=== PATIENT | male | born 1985 | race Caucasian/White ===

== ENCOUNTER 2020-03-27 23:29 | Emergency (ER) | payer OTHER, SELFPAY ==
--- NOTE | ~2020-03-27 | XR_ITS ---
EXAMINATION: XR abdomen/kub 1V INDICATION: Left flank pain TECHNIQUE: Supine views of the abdomen were obtained on 2 radiographs. COMPARISON: None FINDINGS: No urinary tract calculi are identified. The bowel gas pattern is normal. There are no dila gwendolyn loops of bowel. A moderate volume of colonic stool is noted. IMPRESSION: 1. No urolithiasis identified. Reviewed, dictated and finalized at location A.
[2020-03-27 23:31] VITALS: BP 130/79; PULSE 71; RESP 19; TEMP 36.4; O2SAT 98
[2020-03-27 23:55] LABS: Basophils Percent Auto 0.3 % (0.2-1.2); Eosinophils Absolute Auto 0.5 K/mm3 (0-0.3); Eosinophils Percent Auto 6.2 % (0-4.4); Hematocrit 43.2 % (42.0-52.0); Hemoglobin 14.9 g/dL (14.0-18.0); Immature Granulocyte Absolute 0.03 K/mm3 (0.00-0.031); Immature Granulocyte Percent A 0.3 % (0-0.5); Lymphocytes Absolute Auto 2.65 K/mm3 (0.9-3.2); Lymphocytes Percent Auto 30.4 % (18.3-44.2); Mean Corpuscular HGB Conc 34.5 g/dl (32-36); Mean Corpuscular Volume 95.6 fl (80-100); Monocytes Absolute Auto 0.8 K/mm3 (0.1-0.6); Monocytes Percent Auto 8.6 % (2.6-8.5); Neutrophils Absolute Auto 4.7 K/mm3 (1.3-6.7); Neutrophils Percent Auto 54.2 % (45.5-73.1); Platelet Count Result 243 k/mm3 (150-375); Red Blood Count 4.52 M/mm3 (4.6-6.20); Red Cell Distribution Width 12.9 % (11.5-14.5); White Blood Count 8.7 K/mm3 (4.5-10.0)
--- NOTE | 2020-03-27 23:57 | ED.ABDPAIN ---
HPI - Abdominal Pain General Chief Complaint: Abdominal Pain Stated Complaint: pain in l side Time Seen by Provider: 03/27/20 23:37 History of Present Illness HPI narrative: LUQ pain for the past week. Continuous. Currently mild. Worse after eating. Feels tight. No nausea, vomiting, diarrhea. He has not tried anything for the pain. Related Data Allergies Allergy/AdvReac Type Severity Reaction Status Date / Time No Known Allergies Allergy Verified 03/27/20 23:58 Review of Systems Review of Systems: All systems reviewed & are unremarkable except as noted in HPI and below Constitutional: Constitutional: Denies fever(s) Cardiovascular: Cardiovascular: Denies chest pain Genitourinary: Genitourinary: Denies dysuria Musculoskeletal: Musculoskeletal: Denies back pain [facility] Social History Social History Gender identity (if verbalized by the patient): Male Exam Const: General: healthy appearing and no acute distress Orientation/consciousness: patient oriented x3 HENMT: Head: normal to inspection Chest: Chest palpation & inspection: no tenderness Resp: Effort & Inspection: normal respiratory effort Auscultation: clear to auscultation bilaterally Cardio: Rate: regular rate Rhythm: regular rhythm GI: Inspection: non-distended GI Palp: Yes Soft to palpation and No Tenderness to palpation present (GI) Skin: General skin exam: normal color Neuro: General: patient oriented x3 and moves all extremities Speech: normal speech Extrem: General: normal to inspection Course Vital Signs Vital signs: Vital Signs Temperature 36.4 C L 03/27/20 23:31 Pulse Rate 71 03/27/20 23:31 Respiratory Rate 19 03/27/20 23:31 Blood Pressure 130/79 03/27/20 23:31 Pulse Oximetry 98 03/27/20 23:31 Temperature 36.4 C L 03/27/20 23:31 Pulse Rate 78 03/28/20 01:34 Respiratory Rate 16 03/28/20 01:34 Blood Pressure 122/77 03/28/20 01:34 Pulse Oximetry 100 03/28/20 01:34 MDM - Abdominal Pain Differential Diagnosis Differential diagnosis: Likely constipation Medical Records Attestation: I reviewed the patient's medical records. Lab Data Attestation: I reviewed the patient's lab results. Result diagrams: 03/27/20 23:49 03/27/20 23:49 Labs: Lab Results 03/27/20 03/27/20 03/27/20 Range/Units 23:48 23:49 23:49 WBC 8.7 (4.5-10.0) K/mm3 RBC 4.52 L (4.6-6.20) M/mm3 Hgb 14.9 (14.0-18.0) g/dL Hct 43.2 (42.0-52.0) % MCV 95.6 (80-100) fl MCH 33.0 (26-34) pg MCHC 34.5 (32-36) g/dl RDW 12.9 (11.5-14.5) % Plt Count 243 (150-375) k/mm3 MPV 10.0 (7.4-10.4) fl Immature Gran % (Auto) 0.3 (0-0.5) % Neut % (Auto) 54.2 (45.5-73.1) % Lymph % (Auto) 30.4 (18.3-44.2) % [place] % (Auto) 8.6 H (2.6-8.5) % Eos % (Auto) 6.2 H (0-4.4) % Baso % (Auto) 0.3 (0.2-1.2) % Lymph # (Auto) 2.65 (0.9-3.2) K/mm3 [place] # (Auto) 0.8 H (0.1-0.6) K/mm3 Eos # (Auto) 0.5 H (0-0.3) K/mm3 Baso # (Auto) 0.0 (0.0-0.1) K/mm3 Abs Immat Gran (auto) 0.03 (0.00-0.031) K/mm3 Absolute Neuts (auto) 4.7 (1.3-6.7) K/mm3 Absolute Nucleated RBC 0.0 (0.0-0.012) K/mm3 Nucleated RBC % 0.0 (0.0-0.2) % Sodium 140 (137-145) mmol/L Potassium 4.1 (3.4-5.0) mmol/L Chloride 103 (98-107) mmol/L Carbon Dioxide 28 (22-30) mmol/L Anion Gap 13.1 (7-16) mmol/L BUN 23 H (9-20) mg/dL Creatinine 1.00 (0.7-1.3) mg/dL Estim Creat Clear Calc 105 ml/min Estimated GFR > 60 (59 - ) Glucose 92 (75-110) mg/dL Calcium 9.5 (8.4-10.2) mg/dL Total Bilirubin 0.5 (0.2-1.3) mg/dL AST 29 (17-59) U/L ALT 30 (4-50) U/L Alkaline Phosphatase 42 (38-126) U/L Total Protein 8.0 (6.3-8.2) g/dL Albumin 4.8 (3.5-5.1) g/dL Lipase 196 (23-300) U/L Urine Color Yellow (Yellow) Urine Appearance Carloz
[2020-03-28] MEDS: KETOROLAC 30 MG/ML VIAL (*BKC) IV PUSH (00:03)
[2020-03-28 00:07] LABS: Alanine Aminotransferase 30 U/L (4-50); Albumin Level 4.8 g/dL (3.5-5.1); Alkaline Phosphatase 42 U/L (38-126); Anion Gap 13.1 mmol/L (7-16); Aspartate Amino Transferase 29 U/L (17-59); Bilirubin,Total 0.5 mg/dL (0.2-1.3); Blood Urea Nitrogen 23 mg/dL (9-20); Calcium 9.5 mg/dL (8.4-10.2); Carbon Dioxide 28 mmol/L (22-30); Chloride 103 mmol/L (98-107); Estimated CRCL calculation 105 ml/min; Estimated Glomerular Filt Rate > 60; Glucose 92 mg/dL (75-110); Lipase 196 U/L (23-300); Potassium 4.1 mmol/L (3.4-5.0); Sodium 140 mmol/L (137-145)
[2020-03-28 00:08] LABS: Add Urine Microscopic? NO; Appearance Urine Clear (Clear); Bilirubin Urine Negative (Negative); Blood Urine Negative (Negative); Color Urine Yellow (Yellow); Glucose Urine UA Negative (Negative); Ketones Urine Negative (Negative); Leukocyte Esterase Ur Negative LEU/UL (Negative); Nitrate Urine Negative (Negative); Protein Urine Negative (Negative); Urobilinogen Urine Negative mg/dL (<2.0)
[2020-03-28 00:13] LABS: Specific Grav Ur 1.031 (1.001-1.035)
[2020-03-28 01:34] VITALS: BP 122/77; PULSE 78; RESP 16; O2SAT 100
== END 2020-03-28 01:35 | disposition home or self-care (01) ==
PROVIDERS: Emergency Provider Emergency Medicine
DX: K59.00 Constipation, unspecified (principal)
CPT/HCPCS: 36415; 74018; 80053; 81003; 83690; 85025; 96374; 99284; J1885

== ENCOUNTER 2024-01-31 15:07 | Emergency (ER) | payer OTHER, SELFPAY ==
--- NOTE | ~2024-01-31 | CT_ITS ---
EXAMINATION: CT soft tissue neck w con DATE: 01/31/2024 18:48 INDICATION: Throat tightness TECHNIQUE: Computed tomography (CT) of the neck was performed with 75 mL Omnipaque-350 intravenous co ntrast. Automated exposure control and iterative reconstruction technique were employed. The dose-nick gth product was 584.24 mGy-cm. COMPARISON: None FINDINGS: The thyroid gland is unremarkable. The submandibular and parotid glands are symmetric. There is n o cervical lymphadenopathy. There are no masses identified. The superior mediastinum is unremarka ble. The airway is unremarkable. Parapharyngeal and pre-glottic fat planes are preserved. Jacqueline lly enhancing neck vessels. The orbits are unremarkable. Ethmoid mucosal thickening, small retenti on cysts or polyps in the bilateral maxillary sinuses, the remaining aerated spaces are clear. Visua lized lung parenchyma is clear. There is no significant cervical spondylosis. Dental caries and per iodontal disease. IMPRESSION: Dental caries and periodontal disease, otherwise unremarkable CT soft tissue neck findings. Reviewed, dictated and finalized at location K. IMPRESSION: Dental caries and periodontal disease, otherwise unremarkable CT soft tissue ne ck findings.
--- NOTE | ~2024-01-31 | XR_ITS ---
EXAMINATION: XR chest 2V Exam Date/Time: 01/31/2024 16:30 CDT HISTORY: sob/cough Comparison: None. RESULT: Lines, tubes, and devices: None. Lungs and pleura: Clear. Cardiomediastinal silhouette: Normal. Other: No acute osseous or upper abdominal finding. IMPRESSION: No acute cardiopulmonary process. Reviewed, dictated and finalized at location K.
[2024-01-31 15:09] VITALS: BP 175/109; PULSE 86; RESP 17; TEMP 36.6; O2SAT 100
--- NOTE | 2024-01-31 16:09 | ED.GENADULT ---
HPI - General Adult General Chief complaint: Unspecified <Alexander Rodriguez APRN - Last Filed: 01/31/24 16:12> Stated complaint: swelling under left armpit <Alexander Rodriguez APRN - Last Filed: 01/31/24 16:12> Time Seen by Provider: 01/31/24 16:10 <Alexander Rodriguez APRN - Last Filed: 01/31/24 16:12> Focused HPI: Bala is a 38-year-old male patient presenting to the emergency room with complaints of swelling under the left axilla, pain on the left upper back, throat tightness, shortness of breath, cough, and sweats. Reports that he has a dental abscess to the left side of his mouth that he is going to see the dentist for in the next few days to have the tooth removed. Is also reporting some abdominal discomfort. This is been going on for approximately 1 week. GENERAL: Well-appearing, well-nourished, and in no acute distress. HEAD: Normocephalic, atraumatic. CHEST: Clear to auscultation. No respiratory distress. HEART: Regular rate and rhythm. NEURO: Alert and oriented x3. Patient screened in triage and initial orders placed. Additional care and disposition to be based upon diagnostic testing and treatment. <Alexander Rodriguez APRN - Last Filed: 01/31/24 16:12> Source: patient <Alexander Rodriguez APRN - Last Filed: 01/31/24 16:12> Mode of arrival: ambulatory <Alexander Rodriguez APRN - Last Filed: 01/31/24 16:12> Limitations: no limitations <Alexander Rodriguez APRN - Last Filed: 01/31/24 16:12> History of Present Illness HPI narrative: 38-year-old male with a reported history of anxiety presents to the emergency department for multiple medical complaints. He is reporting pain to his left axilla, a dental abscess to his left front tooth, throat and chest tightness with difficulty taking a deep breath, clamminess and chills for 4 days. Patient states approximately 1 year ago he began developing a dental abscess to his left front tooth, he was evaluated by a dentist in May of 2023. He has not been evaluated by dentist since but feels like it has come back and it is draining. He has an appointment with a dentist in 4 days. He states there is tightness is in his chest and his throat and it seems to be intermittent. States he had significant tightness in the waiting room but since he has been back in the exam room it seems to has lessened up some, however it is still present. He is wondering if there is an anxiety component to this. States he is not on any medications base to be on Zoloft many years ago. States he and his are going through a tough times right now. He denies SI or HI. Denies history of VTE, recent surgeries or hospitalizations, fever,congestion. Is reporting some cough. He smokes marijuana but does not use tobacco. he is also reporting a tender spot to his left mid back that is worse with palpation. States he had a massage and was told to get this evaluated by a medical professional. Also is reporting pain to his right lower ribs. <Oanh Guzmán PA-C - Last Filed: 01/31/24 19:42> Related Data Allergies/adverse reactions: Allergies Allergy/AdvReac Type Severity Reaction Status Date / Time No Known Allergies Allergy Verified 01/31/24 15:07 <Alexander Rodriguez APRN - Last Filed: 01/31/24 16:12> Review of Systems Review of Systems: CONSTITUTIONAL: Denies fever, chills, or sweats. EYES: Denies visual changes, redness, or discharge. ENT: see HPI CARDIOVASCULAR: Denies chest pain, palpitations, or edema. RESPIRATORY: see HPI GASTROINTESTINAL: Denies abdominal pain, nausea, vomiting, or diarrhea. GENITOURINARY: Denies dysuria or hematuria. SKIN: Denies rash or itching. MUSCULOSKELETAL: Denies back pain, joint pain, or myalgia. NEUROLOGIC: Denies headache, numbness, or weakness. PSYCHIATRIC: See HPI <Oanh Guzmán PA-C - Last Filed: 01/31/24 19:42> [facility] Social History Social History: Social History (Reviewed
[2024-01-31 16:38] LABS: Basophils Percent Auto 0.4 % (0.2-1.2); Eosinophils Absolute Auto 0.4 K/mm3 (0-0.3); Eosinophils Percent Auto 5.3 % (0-4.4); Hematocrit 44.8 % (42.0-52.0); Hemoglobin 15.2 g/dL (14.0-18.0); Immature Granulocyte Absolute 0.03 K/mm3 (0.00-0.031); Immature Granulocyte Percent A 0.4 % (0-0.5); Lymphocytes Absolute Auto 2.22 K/mm3 (0.9-3.2); Lymphocytes Percent Auto 26.8 % (18.3-44.2); Mean Corpuscular HGB Conc 33.9 g/dl (32-36); Mean Corpuscular Hemoglobin 32.8 pg (26-34); Mean Corpuscular Volume 96.8 fl (80-100); Mean Platelet Volume 9.4 fl (7.4-10.4); Monocytes Absolute Auto 0.8 K/mm3 (0.1-0.6); Monocytes Percent Auto 9.1 % (2.6-8.5); Neutrophils Absolute Auto 4.8 K/mm3 (1.3-6.7); Platelet Count Result 234 k/mm3 (150-375); Red Blood Count 4.63 M/mm3 (4.6-6.20); Red Cell Distribution Width 12.7 % (11.5-14.5); White Blood Count 8.3 K/mm3 (4.5-10.0)
[2024-01-31 16:47] LABS: Alanine Aminotransferase 26 U/L (6-50); Alkaline Phosphatase 37 U/L (38-126); Anion Gap 7 mmol/L (4-12); Aspartate Amino Transferase 28 U/L (17-59); Bilirubin,Total 0.8 mg/dL (0.2-1.3); Blood Urea Nitrogen 21 mg/dL (9-20); Calcium 9.6 mg/dL (8.4-10.2); Carbon Dioxide 26 mmol/L (22-30); Chloride 108 mmol/L (98-107); Estimated CRCL calculation 103 ml/min; Estimated Glomerular Filt Rate > 60; Glucose 102 mg/dL (65-110); Sodium 141 mmol/L (137-145)
--- NOTE | 2024-01-31 16:56 | PC.NURSE ---
The COLLECTIVE BARGAINING SPECIALIST in triage tells me that he did pull a tick off this patient's back during medical screening exam.
--- NOTE | 2024-01-31 17:42 | ECG_ITS ---
Test Date: 2024-01-31 18:22:03 Measurements Intervals [place] Rate: 69 P: -8 [place]: 127 QRS: -3 QRSD: 98 T: 11 QT: 351 QTc: 376 Interpretive Statements SINUS RHYTHM WITH SINUS ARRHYTHMIA No previous ECG available for comparison Electronically Signed On 02-01-2024 10:50:23 CDT by Brisa Diego M.D.
[2024-01-31 18:43] LABS: Lipase 483 U/L (23-300)
[2024-01-31 18:45] LABS: Prothrombin Time 13.6 Seconds (11.1-14.7)
[2024-01-31 18:46] LABS: Partial Thromboplastin Time 30.1 Seconds (22.3-36.8)
[2024-01-31 18:54] LABS: Troponin I < 0.012 ng/mL (0.000-0.034)
[2024-01-31 19:03] LABS: Appearance Urine Clear (Clear); Bilirubin Urine Negative (Negative); Blood Urine Negative (Negative); Color Urine Yellow (Yellow); Glucose Urine UA Negative (Negative); Ketones Urine Trace mg/dL (Negative); Leukocyte Esterase Ur Negative LEU/UL (Negative); Nitrate Urine Negative (Negative); Protein Urine Negative (Negative); pH Urine 5.5 (5.0-9.0)
[2024-01-31 19:15] LABS: Specific Grav Ur 1.049 (1.001-1.035)
[2024-01-31 19:16] LABS: Add Urine Microscopic? NO
[2024-01-31] MEDS: AMOXICILLIN/CLAVULANATE K 875-125 MG TAB 1 TABLET PO (19:50)
== END 2024-01-31 19:53 | disposition home or self-care (01) ==
PROVIDERS: Nurse Practitioner Family; Emergency Provider Physician Assistant
DX: K08.89 Other specified disorders of teeth and supporting structures (principal); F41.9 Anxiety disorder, unspecified; K02.9 Dental caries, unspecified; K05.6 Periodontal disease, unspecified
CPT/HCPCS: 36415; 70491; 71046; 80053; 81003; 83690; 84484; 85025; 85610; 85730; 93005; 99284; A9270; Q9967